=== PATIENT | male | born 1955 | race Caucasian/White ===

== ENCOUNTER 2017-05-22 09:15 | Emergency (ER) | payer OTHER ==
[~2017-05-22] VITALS: Ht 182.9 cm; Wt 98.1 kg
[~2017-05-22 09:15] MED LIST: GLC500 PO; LISI-461 PO
[2017-05-22 09:17] VITALS: TEMP 36.5; Ht 182.9 cm; Wt 98.1 kg
[2017-05-22 10:23] LABS: BASO % 0.5 %; BASO ABS # 0.03 K/uL (0-0.2); COMPLETE YES; EOS % 2.4 %; HEMATOCRIT 42.4 % (42-52); IG% 0.3 %; LYMPH % 26.8 %; LYMPH ABS # 1.59 K/uL (1.2-3.4); MEAN CELL VOLUME 89.8 fL (80-100); MEAN CORPUSCULAR HEMOGLOBIN 30.1 pg (25-34); MEAN CORPUSCULAR HGB CONC 33.5 g/dl (32-36); MONO % 7.3 %; NEUT % 62.7 %; PLATELET COUNT 155 K/uL (130-400); RED BLOOD COUNT 4.72 M/uL (4.7-6.1); WHITE BLOOD COUNT 5.93 K/uL (4.8-10.8)
[2017-05-22] MEDS ORDERED: GLC/500 PO (10:37)
[2017-05-22] MEDS ORDERED: LISI-461 PO (10:37)
[2017-05-22] MEDS ORDERED: GLIP-197 PO (10:37)
[2017-05-22 10:48] LABS: ALT/SGPT 54 U/L (12-78); BLOOD UREA NITROGEN 16 mg/dl (7-18); BUN/CREATININE RATIO 18.5 (10-20); CALCIUM 9.3 mg/dl (8.5-10.1); CARBON DIOXIDE 25 mmol/L (21-32); CHLORIDE 108 mmol/L (98-107); CREATININE 0.88 mg/dl (0.60-1.40); GLUCOSE 170 mg/dl (70-99); POTASSIUM 4.4 mmol/L (3.5-5.1); SODIUM 141 mmol/L (136-145)
[2017-05-22 10:51] LABS: ALKALINE PHOSPHATASE 117 U/L (45-117); AST/SGOT 22 U/L (15-37)
[2017-05-22 11:00] VITALS: BP 162/94; PULSE 68; O2SAT 98
--- NOTE | 2017-05-22 17:14 | EMERGENCY ROOM VISIT NOTE ---
History Report prepared by Shireen: Rivera Teran Under the Supervision of: Dr. Antonio Pettit M.D. First contact with patient: 09:37 Chief Complaint: HYPERTENSION Stated Complaint: HIGH BLOOD PRESSURE History of Present Illness The patient is a 61 year old male who presents to the Emergency Room with complaints of hypertension. He was feeling well today and at a screening health fair noticed that his blood pressure was high. They sent him up here. He is on lisinopril 10 mg. He is asymptomatic. Denies chest pain or shortness of breath. He's had no headache lightheadedness or dizziness. No nausea vomiting or numbness weakness. No blood or melena stool. No back pain or abdominal pain. Source of History: patient Review of Systems See HPI for pertinent positives & negatives. A total of 10 systems reviewed and were otherwise negative. Past Medical & Surgical Medical Problems: (1) HTN (hypertension) Old medical records were reviewed. Nurse's notes were reviewed and I agree with. Family History No pertinent family history stated. Social History Smoking Status: Never Smoker Drug Use: none Housing Status: lives with family Occupation Status: employed Current/Historical Medications Scheduled Glipizide (Glipizide Er), 1 TAB PO DAILY Metformin Hcl (Glucophage), 500 MG PO BID Miscellaneous Medications Lisinopril (Zestril), 10 MG PO Allergies Coded Allergies: Penicillins (Unverified Allergy, Mild, 09/23/09) Physical Exam Vital Signs Date Time Temp Pulse Resp B/P (MAP) Pulse Ox O2 Delivery O2 Flow Rate FiO2 05/22/17 11:00 68 18 162/94 98 Room Air 05/22/17 09:41 78 05/22/17 09:17 36.5 69 18 189/82 96 Room Air Physical Exam General: Well developed well nourished middle aged male who appears in no acute distress, breathing comfortably on room air. Normal speech. Evi Coma Score 15. HEENT: Normal cephalic atraumatic. Pupils are equal round and reactive to light. Extraocular movements are intact. Oropharynx is pink with moist mucous membranes. No swelling of the mouth lips or tongue. Neck: Supple with a midline trachea. No meningeal signs or stiffness, no JVD or bruits. No Stridor. Chest: Clear to auscultation bilaterally. No wheezes or rhonchi. No increased work of breathing. Heart: Regular rate and rhythm without murmurs or gallops. Abdomen: Soft nontender, nondistended without rebound guarding or rigidity. Extremities: No cyanosis clubbing or edema. No calf tenderness or assymetry Spine/Back. Non tender to palpation. No CVA tenderness Skin: Good turgor without rashes. Neurologic exam: Cranial nerves two through 12 are intact. Motor and sensation are intact and symmetrical throughout. No tremor. Medical Decision & Procedures Laboratory Results 05/22/17 09:55 Red Blood Count 4.72, Mean Corpuscular Volume 89.8, Mean Corpuscular Hemoglobin 30.1, Mean Corpuscular Hemoglobin Concent 33.5, Mean Platelet Volume 11.0, Neutrophils (%) (Auto) 62.7, Lymphocytes (%) (Auto) 26.8, Monocytes (%) (Auto) 7.3, Eosinophils (%) (Auto) 2.4, Basophils (%) (Auto) 0.5, Neutrophils # (Auto) 3.72, Lymphocytes # (Auto) 1.59, Monocytes # (Auto) 0.43, Eosinophils # (Auto) 0.14, Basophils # (Auto) 0.03 05/22/17 09:55 Test 05/22/17 09:55 05/22/17 09:59 White Blood Count 5.93 K/uL (4.8-10.8) Red Blood Count 4.72 M/uL (4.7-6.1) Hemoglobin 14.2 g/dL (14.0-18.0) Hematocrit 42.4 % (42-52) Mean Corpuscular Volume 89.8 fL (80-100) Mean Corpuscular Hemoglobin 30.1 pg (25-34) Mean Corpuscular Hemoglobin Concent 33.5 g/dl (32-36) Platelet Count 155 K/uL (130-400) Mean Platelet Volume 11.0 fL (7.4-10.4) Neutrophils (%) (Auto) 62.7 % Lymphocytes (%) (Auto) 26.8 % Monocytes (%) (Auto) 7.3 % Eosinophils (%) (Auto) 2.4 % Basophils (%) (Auto) 0.5 % Neutrophils # (Auto) 3.72 K/uL (1.4-6.5) Lymphocytes # (Auto) 1.59 K/uL (1.2-3.4) Monocytes # (Auto) 0.43 K/uL (0.11-0.59) Eosinophils # (Auto) 0.14 K/uL (0-0.5) Basophils # (Auto) 0.03 K/uL (0-0.2) RDW Standard Deviation 42.3 fL (36.4-46.3) RDW Coefficient of Variation 12.9 % (11.5-14.5) Immature Granulocyte % (Auto) 0.3 % Immature Granulocyte # (Auto) 0.02 K/uL (0.00-0.02) Anion Gap 8.0 mmol/L (3-11) Est Creatinine Clear Calc Drug Dose 104.3 ml/min Estimated GFR () 106.0 Estimated GFR (Non- 91.4 BUN/Creatinine Ratio 18.5 (10-20) Calcium Level 9.3 mg/dl (8.5-10.1) Total Bilirubin 0.3 mg/dl (0.2-1) Direct Bilirubin < 0.1 mg/dl (0-0.2) Aspartate Amino Transf (AST/SGOT) 22 U/L (15-37) Alanine Aminotransferase (ALT/SGPT) 54 U/L (12-78) Alkaline Phosphatase 117 U/L (45-117) Total Protein 7.0 gm/dl (6.4-8.2) Albumin 3.8 gm/dl (3.4-5.0) Lipase 286 U/L (73-393) Bedside Troponin I < 0.030 ng/ml (0-0.045) Laboratory studies as stated above per my review. ECG Indication: other (HTN) Rate (beats per minute): 74 Rhythm: normal sinus Findings: no acute ischemic change, other (LVH) Comparison ECG Date: 09/07/2009 Change: LVH is now present. ED Course 0940: Past medical records reviewed. The patient was evaluated in room A12B, and a complete history and physical examination were performed. 1125: Upon reevaluation, the patient is resting comfortably. I discussed the results and treatment plan with him. He verbalized agreement of the treatment plan. The patient was discharged home. Medical Decision Differentials include, but are not limited to hypertension, hypertensive emergency, cardiac disease, electrolyte or metabolic abnormalities, infection This patient comes in as described above. He was sent over for evaluation treatment after having a simple asymptomatic moderate hypertension. His blood pressure here was moderately elevated in the 160s systolic. I do think he likely need long-term treatment however. There is no short term indication acutely lowered blood pressure. He is asymptomatic. EKG does not suggest acute coronary syndrome or ischemia. He has no electrolyte or metabolic abnormalities and normal kidney function. He is on lisinopril 10 mg a day. I told him to check his blood pressure frequently when is relaxed and follow-up with his doctor this week for recheck. He should return if: Chest pain, shortness of breath, numbness weakness, worsening of symptoms, any new problems concerns. He is happy the plan and discharged to home. Medication Reconcilliation Current Medication List: was personally reviewed by me Blood Pressure Screening Patient's blood pressure: Elevated blood pressure Blood pressure disposition: Referred to PCP Impression Primary Impression: HTN (hypertension) Scribe Attestation The scribe's documentation has been prepared under my direction and personally reviewed by me in its entirety. I confirm that the note above accurately reflects all work, treatment, procedures, and medical decision making performed by me. Departure Information Dispostion Home / Self-Care Referrals Yogesh Chinchilla M.D. (PCP) Forms WORK / SCHOOL INSTRUCTIONS, HOME CARE DOCUMENTATION FORM, IMPORTANT VISIT INFORMATION Patient Instructions My [facility] Additional Instructions Rest. Drink plenty of fluids. Check and longer blood pressure several times a day when you're relaxed Follow-up with your doctor this week for recheck. If your blood pressure persistently is elevated they may need to increase her medications Return to the ER if: Worsening symptoms, numbness or weakness, any new problems or concerns.
== END 2017-05-22 11:31 | disposition home or self-care (01) ==
LOC: C.EDB 09:16 → C.EDA 11:31
DX: I10 Essential (primary) hypertension (principal)